=== PATIENT | male | born 1980 | race Two or more races ===

== ENCOUNTER 2019-03-21 16:49 | Emergency (ER) | payer OTHER ==
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
[2019-03-21 17:10] VITALS: TEMP 98.4; BMI 45.3
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
[2019-03-21 18:03] LABS: BASO % 0.7 % (0-2.0); EOS % 1.3 % (0-4.5); HEMATOCRIT 44.9 % (35.4-49); HEMOGLOBIN 14.9 GM/dL (11.7-16.9); LYMPH % 26.5 % (8-40); MCH 29.2 pg (25.7-33.7); MCHC 33.3 g/dl (32.0-35.9); MEAN CELL VOLUME 87.7 fl (80-96); MONO % 8.3 % (3.8-10.2); NEUT % 63.2 % (42.8-82.8); PLATELET COUNT 244 K/MM3 (134-434); RBC 5.13 M/mm3 (4.00-5.60); RDW 14.2 % (11.9-15.9); WHITE BLOOD COUNT 11.2 K/mm3 (4.0-10.0)
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
[2019-03-21 18:32] LABS: INR 0.96 (0.83-1.09); PROTHROMBIN TIME (PATIENT) 11.3 SEC (9.7-13.0)
[2019-03-21 18:38] LABS: ALBUMIN 3.7 g/dl (3.4-5.0); BILIRUBIN,TOTAL 0.6 mg/dL (0.2-1); BLOOD UREA NITROGEN 10.6 mg/dL (7-18); CALCIUM 8.7 mg/dL (8.5-10.1); CREATININE 0.8 mg/dL (0.55-1.3); POTASSIUM 5.1 mmol/L (3.5-5.1); TOT PROT 7.4 g/dl (6.4-8.2)
[2019-03-21] MEDS ORDERED: ACETAMINOPHEN 325 MG TABLET (FP) PO ONE (18:49)
[2019-03-21] MEDS ORDERED: ACETAMINOPHEN 325 MG TABLET (FP) ONE (19:36)
[2019-03-21 19:59] VITALS: BP 145/68; PULSE 92
--- NOTE | 2019-03-22 10:42 | EKG ---
Test Reason : Blood Pressure : / mmHG Vent. Rate : 068 BPM Atrial Rate : 068 BPM P-R Int : 132 ms QRS Dur : 082 ms QT Int : 384 ms P-R-T Axes : 008 043 024 degrees QTc Int : 408 ms NORMAL SINUS RHYTHM NORMAL ECG NO PREVIOUS ECGS AVAILABLE Confirmed by Ej Sagastume MD ([id number]) on 03/22/2019 10:42:19 AM Referred By: Confirmed By:Ej Sagastume MD
== END 2019-03-21 20:01 | disposition home or self-care (01) ==
LOC: JER 16:49
DX: S80.212A Abrasion, left knee, initial encounter (principal); S80.211A Abrasion, right knee, initial encounter; S30.1XXA Contusion of abdominal wall, initial encounter; V49.49XA Driver injured in collision with other motor vehicles in traffic accident, initial encounter; Y92.414 Local residential or business street as the place of occurrence of the external cause; W22.11XA Striking against or struck by driver side automobile airbag, initial encounter; Y93.89 Activity, other specified; Y99.8 Other external cause status; E11.9 Type 2 diabetes mellitus without complications; Z79.84 Long term (current) use of oral hypoglycemic drugs
CPT/HCPCS: 36415; 71275-TC; 74177-TC; 80053; 85025; 85610; 86850; 86900; 86901; 93005; 93010; 99285-25; Q9967